=== PATIENT | female | born 1960 | race Caucasian/White ===

== ENCOUNTER → 2018-11-25 | Outpatient (CLI) | payer BC ==
[2018-11-25 11:24] LABS: ABG BASE EXCESS 2.7 MMOL/L (-2.5-2.5); ABG OXYGEN SATURATION 97 % (94-100); ABG PCO2 39 MMHG (35-45); ABG PH 7.45 (7.37-7.43); ABG PO2 79 MMHG (79-93); ABG TCO2 27.6 MMOL/L (21.0-31.0)
[2018-11-25 11:29] LABS: ALLENS TEST YES-POS
[2018-11-25 11:30] LABS: INSPIRED O2 ROOM AIR; PATIENT TEMP 98.6; VENTILATOR NO
== END ==
LOC: RT 09:57
PROVIDERS: ATTEND Nurse Practitioner Family
DX: J30.2 Other seasonal allergic rhinitis (principal)
CPT/HCPCS: 36600; 82805